=== PATIENT | female | born 1960 | race Two or more races ===

== ENCOUNTER 2017-09-19 12:41 | Inpatient (IN) | payer OTHER ==
[~2017-09-19] VITALS: Ht 160 cm; Wt 77.1 kg
[2017-09-29] MEDS ORDERED: COLACE100 MG PO (10:23)
[2017-09-29] MEDS ORDERED: CLONAZEPAM1 MG PO (10:24)
[2017-09-29] MEDS ORDERED: PERCOCET 5-3251 EACH PO (10:24)
== END 2017-09-30 12:36 | disposition home or self-care (01) | DRG 454 ==
LOC: O/R 09-29 04:45 → RECOVERY 09-29 10:00 → PED 09-29 15:20
PROVIDERS: Orthopaedic Surgery Orthopaedic Surgery of the Spine
PROC: 0RG2071 Fusion of 2 or more Cervical Vertebral Joints with Autologous Tissue Substitute, Posterior Approach, Posterior Column, Open Approach (ICD-10-PCS; 2017-09-29)
PROC: 0RT30ZZ Resection of Cervical Vertebral Disc, Open Approach (ICD-10-PCS; 2017-09-29)
PROC: 07DS3ZZ Extraction of Vertebral Bone Marrow, Percutaneous Approach (ICD-10-PCS; 2017-09-29)
PROC: 0RG20A0 Fusion of 2 or more Cervical Vertebral Joints with Interbody Fusion Device, Anterior Approach, Anterior Column, Open Approach (ICD-10-PCS; principal; 2017-09-29 10:00)
DX: M50.01 Cervical disc disorder with myelopathy, high cervical region (principal); M47.12 Other spondylosis with myelopathy, cervical region; E11.9 Type 2 diabetes mellitus without complications; J45.998 Other asthma

== ENCOUNTER 2018-04-14 13:12 | Outpatient (CLI) | payer OTHER ==
[~2018-04-14 13:12] MED LIST: CLONAZEPAM1 MG PO; COLACE100 MG PO; PERCOCET 5-3251 EACH PO
== END 2018-04-14 13:16 | disposition home or self-care (01) ==
LOC: RAD 13:12
DX: M50.00 Cervical disc disorder with myelopathy, unspecified cervical region (principal); Z98.1 Arthrodesis status